=== PATIENT | male | born 1950 | race Caucasian/White ===

== ENCOUNTER 2023-10-15 19:14 | Emergency (ER) | payer OTHER, SELFPAY ==
[2023-10-15 19:27] VITALS: BP 183/93; PULSE 80; RESP 16; TEMP 36.4; O2SAT 99; BMI 34.7
--- NOTE | 2023-10-15 20:50 | ED_ITS ---
HPI - Wound/Laceration General Chief Complaint: Laceration/Wound Stated Complaint: L foot old injury infected Time Seen by Provider: 10/15/23 19:21 History of Present Illness HPI narrative: This 73-year-old male comes in with painful wound on the plantar surface of his left foot. He states that he has had recurrent issues with his foot over many years. When he was a child he had a pitchfork that stabbed through his foot. He has had persistent callus and recurrent issues with the plantar surface of this foot since then. This current episode has been happening over the past week and his pain was significantly more today. He does not report any fevers. He typically wears Crocs for shoes and his feet are rather soiled. He does not report any neuropathy. And does not have history of diabetes. Related Data Home Medications ?Medication ?Instructions ?Recorded ?Confirmed No Known Home Medications 10/15/23 10/15/23 Allergies Allergy/AdvReac Type Severity Reaction Status Date / Time No Known Drug Allergies Allergy Verified 10/15/23 19:32 Review of Systems Status of ROS: Reports: 10 or more systems reviewed and unremarkable except as noted in History and below Narrative: Constitutional: No fevers, no weight gain or loss. Eyes: No discharge. No vision changes. HENT: No congestion, no sore throat, no ear pain. Cardiovascular: No chest pain, no palpitations. Respiratory: No shortness of breath, no wheezes, no cough. Gastrointestinal: No abdominal pain, no vomiting, no diarrhea. Genitourinary: No dysuria, no hematuria. Musculoskeletal: Normal range of motion. Skin: No rashes, no pruritis. Neurological: No dizziness, weakness, sensory change, speech change. Endo/Heme/Allergies: No bruising or bleeding. No polydipsia. Pysch: no suicidality, no anxiety, no insomnia. All other systems reviewed and are negative. Exam Narrative: Exam Narrative: Constitutional: Well-developed, well-nourished, no acute distress. HEENT: Normocephalic, atraumatic. Neck: Normal range of motion. Nontender. Supple. Heart: Regular. No murmurs. Normal rate. Intact distal pulses. Lungs: Clear to auscultation. No chest discomfort. No wheezes, rhonchi, or rales. Abdomen: Normal bowel sounds. Nontender. No rebound tenderness. Genitalia: Deferred. Back: No midline tenderness. Normal range of motion. Extremities: Normal range of motion. Plantar surface of the left foot has a large callus with a fissure that is now open. There is no active drainage of blood or purulence. Skin: Intact. No rash. Warm. No erythema or pallor. Neurologic: No altered sensation. No weakness. Alert and oriented. Psychiatric: No suicidality. No anxiety or depression. No insomnia. Nursing notes and vitals signs are reviewed. Const: Vital Signs, click to edit/add: Vital Signs - 24 hr 10/15/23 19:27 Temperature 97.6 F Pulse Rate [Pulse Oximeter] 80 Respiratory Rate 16 Blood Pressure [Ri ght Upper Arm] 183/93 H Pulse Oximetry 99 Oxygen Delivery Me thod Room Air Course Vital Signs Vital signs: Initial Vital Signs Temperature 97.6 F 10/15/23 19:27 Temperature Source Temporal Artery Scan 10/15/23 19:27 Pulse Rate 80 10/15/23 19:27 Respiratory Rate 16 10/15/23 19:27 Blood Pressure 183/93 H 10/15/23 19:27 Blood Pressure Mean 123 H 10/15/23 19:27 Blood Pressure Position Supine 10/15/23 19:27 Pulse Oximetry 99 10/15/23 19:27 Oxygen Delivery Method Room Air 10/15/23 19:27 Vital Signs Temperature 97.6 F 10/15/23 19:27 Pulse Rate 80 10/15/23 19:27 Respiratory Rate 16 10/15/23 19:27 Blood Pressure 183/93 H 10/15/23 19:27 Pulse Oximetry 99 10/15/23 19:27 Oxygen Delivery Method Room Air 10/15/23 19:27 Temperature 97.6 F 10/15/23 19:27 Pulse Rate 80 10/15/23 19:27 Respiratory Rate 16 10/15/23 19:27 Blood Pressure 183/93 H 10/15/23 19:27 Pulse Oximetry 99 10/15/23 19:27 Oxygen Delivery Method Room Air 10/15/23 19:27 MDM - Wound/Laceration MDM Narrative Medical decision making narrative: This patient comes in with a painful wound on the bottom of his left foot. This is a chronic recurring wound for him. He does not have a history of diabetes or neuropathy. His feet were rather soiled from wearing Crocs so I had his foot soaked for a while to cleanse the wound. I was better able to evaluate and see that this is not a wound that should be closed as it has been open for approximately a week. There is no active bleeding or purulent drainage. The edges of the fissure however are rather callused and would benefit from wound care in the wound clinic. The patient is instructed not to bear weight on that part of his foot. I did provide prescriptions for Augmentin and Toradol. I advised him to follow-up with the wound clinic for ongoing management. Discharge Plan Discharge Clinical Impression: Wound of foot Patient Disposition: Home, Self-Care Condition: Stable Additional Instructions: Take medications as prescribed. Avoid any weight-bearing on that part of the left foot. Follow-up with wound clinic for ongoing management. Dial [phone] for appointment. Prescriptions: No Action No Known Home Medications Follow Up/Referrals: Provider,Not a Local [Primary Care Provider] - Stand Alone Forms: [employer] Info Instructions
[2023-10-15] MEDS: AMOXICILLIN/CLAVULANATE 875 mg/125 mg TABLET PO (20:52)
[2023-10-15] MEDS: TETANUS/DIPHTH/PERTUSSIS 0.5 ML SYRINGE IM (20:52)
== END 2023-10-15 21:12 | disposition home or self-care (01) ==
PROVIDERS: Emergency Provider Emergency Medicine Emergency Medical Services
DX: S91.302A Unspecified open wound, left foot, initial encounter (principal)
CPT/HCPCS: 90471; 90715; 99284; A9270